=== PATIENT | female | born 1975 | race Caucasian/White ===

== ENCOUNTER 2016-07-22 18:54 | Inpatient (IN) | payer OTHER ==
[2016-07-22] MEDS ORDERED: IPRATROPIUM-ALBUTEROL 3 ML NEB INHALATION STA ×2 (19:15→19:54)
[2016-07-22] MEDS ORDERED: methylPREDNISolone SOD SUCCI 125 MG/2 ML VIAL IV STA (19:15)
--- NOTE | 2016-07-22 19:17 | ED ---
General Adult HPI - General Source: patient, RN notes reviewed Mode of arrival: wheelchair Limitations: no limitations <Sean Tirado - Last Filed: 07/22/16 19:16> <Ga Lindsey - Last Filed: 07/22/16 20:51> - General Chief complaint: Shortness of Breath Stated complaint: ALEX, COUGHING, POSS DX COPD Time Seen by Provider: 07/22/16 19:10 - History of Present Illness Initial comments: Patient 41-year-old female with significant past medical history for asthma, who presents emergency room today with a chief complaint of increased shortness of breath over the last 4 days. She does admit that she quit smoking 9 days ago. States over the last 4 days she's had increased cough congestion. States she's felt increased shortness of breath with walking into work today. She states she's had similar symptoms in the past with an exacerbation of her asthma. She states she did not take any breathing treatments at home. She does admit that approximately a year ago had similar symptoms and was admitted to the hospital. Patient denies any recent fever, chills, chest pain, back pain , abdominal pain, nausea or vomiting, numbness or tingling, dysuria or hematuria , constipation or diarrhea, headaches or visual changes, or any other complaints. (Sean Tirado) - Related Data Home Medications Medication Instructions Recorded Confirmed No Known Home Medications [No 07/22/16 07/22/16 Known Home Medications] Allergies Allergy/AdvReac Type Severity Reaction Status Date / Time No Known Allergies Allergy Verified 07/22/16 19:48 Review of Systems ROS Other: All systems not noted in ROS Statement are negative. <Sean Tirado - Last Filed: 07/22/16 19:16> ROS Other: All systems not noted in ROS Statement are negative. <Ga Lindsey - Last Filed: 07/22/16 20:51> ROS Statement: Those systems with pertinent positive or pertinent negative responses have been documented in the HPI. Past Medical History Past Medical History: Asthma, COPD Additional Past Medical History / Comment(s): migraines History of Any Multi-Drug Resistant Organisms: None Reported Past Surgical History: Tubal Ligation Past Psychological History: Anxiety Smoking Status: Former smoker Past Alcohol Use History: None Reported Past Drug Use History: None Reported <Sean Tirado - Last Filed: 07/22/16 19:16> General Exam Limitations: no limitations <Sean Tirado - Last Filed: 07/22/16 19:16> <Ga Lindsey - Last Filed: 07/22/16 20:51> - General Exam Comments Initial Comments: General: The patient is awake and alert, in no distress, and does not appear acutely ill. Eye: Pupils are equal, round and reactive to light, extra-ocular movements are intact. No nystagmus. There is normal conjunctiva bilaterally. No signs of icterus. Ears, nose, mouth and throat: There are moist mucous membranes and no oral lesions. Neck: The neck is supple, there is no tenderness or JVD. Cardiovascular: There is a regular rate and rhythm. No murmur, rub or gallop is appreciated. Respiratory: Decreased breath sounds bilaterally with forced expiratory wheeze. respirations are non-labored, breath sounds are equal. No stridor, rales, or rhonchi. Musculoskeletal: Normal ROM, no tenderness. Strength 5/5. Sensation intact. Pulses equal bilaterally 2+. Neurological: A&O x 3. CN II-XII intact, There are no obvious motor or sensory deficits. Coordination appears grossly intact. Speech is normal. Skin: Skin is warm and dry and no rashes or lesions are noted. Psychiatric: Cooperative, appropriate mood & affect, normal judgment. (Sean Tirado) Medical Decision Making <Sean Tirado - Last Filed: 07/22/16 19:16> - Lab Data Result diagrams: 07/22/16 19:45 07/22/16 19:45 <Ga Lindsey - Last Filed: 07/22/16 20:51> - Medical Decision Making Medical decision making; the patient's morbidly obese at 330 pounds. I reviewed the patient past history with her and performed a bedside physical examination. Wheezing bilaterally that the second updraft. Patient's heart sounds are distant but no murmur or rub was appreciated. Patient denies any known congenital heart disease. Denies ever having been told that she had an elevated hemoglobin or hematocrit. Complaining of shortness of breath for 3 or 4 days, doing updrafts at home without much improvement. Patient presents today with shortness of breath. No chest pain She was given an updraft with slight improvement. Upon arrival the patient's blood pressures 171/83 with a pulse ox 90% on room air. Labs showed elevated hemoglobin and hematocrit of 16 and 52 respectively. Liver enzymes mildly elevated. Chest x-ray was reviewed by radiologist and his findings are lung volumes are prominent. Lung appear clear. Pleural spaces are clear. Heart size is normal. There is enlargement of the right interlobar pulmonary artery measuring 2.4 cm. Impression; COPD and findings suggestive of pulmonary artery hypertension. As read by Dr. Bonner Case discussed with Dr. Mendenhall on-call hospitalist. We discussed pulmonary hypertension, cor pulmonale, polycythemia vera. An echocardiogram will be done while in hospital. Dr. Lindsey (Ga Lindsey) - Lab Data Lab Results 07/22/16 07/22/16 Range/Units 19:45 19:45 WBC 6.8 (3.8-10.6) k/uL RBC 5.52 H (3.80-5.40) m/uL Hgb 16.6 H (11.4-16.0) gm/dL Hct 52.7 H (34.0-46.0) % MCV 95.5 (80.0-100.0) fL MCH 30.0 (25.0-35.0) pg MCHC 31.4 (31.0-37.0) g/dL RDW 14.1 (11.5-15.5) % Plt Count 195 (150-450) k/uL Neutrophils % 64 % Lymphocytes % 23 % Monocytes % 7 % Eosinophils % 1 % Basophils % 1 % Neutrophils # 4.3 (1.3-7.7) k/uL Lymphocytes # 1.6 (1.0-4.8) k/uL Monocytes # 0.5 (0-1.0) k/uL Eosinophils # 0.1 (0-0.7) k/uL Basophils # 0.1 (0-0.2) k/uL Sodium 141 (137-145) mmol/L Potassium 4.1 (3.5-5.1) mmol/L Chloride 103 (98-107) mmol/L Carbon Dioxide 26 (22-30) mmol/L Anion Gap 12 mmol/L BUN 9 (7-17) mg/dL Creatinine 0.49 L (0.52-1.04) mg/dL Est GFR (MDRD) Af Amer >60 (>60 ml/min/1.73 sqM) Est GFR (MDRD) Non-Af >60 (>60 ml/min/1.73 sqM) Glucose 145 H (74-99) mg/dL Calcium 8.8 (8.4-10.2) mg/dL Total Bilirubin 0.6 (0.2-1.3) mg/dL AST 39 H (14-36) U/L ALT 55 H (9-52) U/L Alkaline Phosphatase 91 (38-126) U/L Total Protein 7.5 (6.3-8.2) g/dL Albumin 3.9 (3.5-5.0) g/dL Disposition <Sean Tirado - Last Filed: 07/22/16 19:16> <Ga Lindsey - Last Filed: 07/22/16 20:51> Clinical Impression: Pulmonary artery hypertension, Polycythemia vera Disposition: ADMITTED IP TO THIS HOSP Condition: Serious
[2016-07-22 19:57] LABS: Basophils # (A) 0.1 k/uL (0-0.2); Basophils % (A) 1 %; CH 30.3; CHCM 31.9; Eosinophils # (A) 0.1 k/uL (0-0.7); Eosinophils % (A) 1 %; HCT 52.7 % (34.0-46.0); HDW 2.49; HGB 16.6 gm/dL (11.4-16.0); Luc % (Auto) 3; Lymphocytes # (A) 1.6 k/uL (1.0-4.8); Lymphocytes % (A) 23 %; MCHC 31.4 g/dL (31.0-37.0); MCV 95.5 fL (80.0-100.0); Mean Platelet Volume 7.5; Monocytes # (A) 0.5 k/uL (0-1.0); Monocytes % (A) 7 %; Neutrophils # (A) 4.3 k/uL (1.3-7.7); Neutrophils % (A) 64 %; RBC 5.52 m/uL (3.80-5.40); RDW 14.1 % (11.5-15.5); WBC 6.8 k/uL (3.8-10.6)
[2016-07-22 20:07] LABS: ALT 55 U/L (9-52); AST 39 U/L (14-36); Alkaline Phosphatase 91 U/L (38-126); Anion Gap 12 mmol/L; Blood Urea Nitrogen 9 mg/dL (7-17); Calcium 8.8 mg/dL (8.4-10.2); Carbon Dioxide 26 mmol/L (22-30); Chloride 103 mmol/L (98-107); Glucose 145 mg/dL (74-99); Non-African American GFR(MDRD) >60 (>60 ml/min/1.73 sqM); Potassium 4.1 mmol/L (3.5-5.1); Sodium 141 mmol/L (137-145); Total Bilirubin 0.6 mg/dL (0.2-1.3); Total Protein 7.5 g/dL (6.3-8.2)
--- NOTE | 2016-07-22 20:11 | XR ---
EXAMINATION TYPE: XR chest 2V DATE OF EXAM: 07/22/2016 8:05 PM HISTORY: Cough and shortness of breath. REFERENCE: Previous study dated 07/28/2015. FINDINGS: Lung volumes are prominent. The lungs appear clear. Pleural spaces are clear. Heart size is normal. There is enlargement of the right interlobar pulmonary artery measuring 2.4 cm. IMPRESSION: 1. COPD. 2. FINDINGS SUGGESTIVE OF PULMONARY ARTERY HYPERTENSION.
[2016-07-22] MEDS ORDERED: TERBUTALINE 1 MG/ML VIAL SQ STA (20:32)
[2016-07-22] MEDS ORDERED: NALOXONE 0.4 MG/ML 1 ML VIAL IV PRN (20:52)
[2016-07-22] MEDS ORDERED: IPRATROPIUM-ALBUTEROL 3 ML NEB INHALATION PRN (21:02)
[2016-07-22 21:49] LABS: Glucose,Whole Blood 139 mg/dL (75-99)
[2016-07-22] MEDS: FAMOTIDINE 20 MG TAB PO SCH (22:26)
[2016-07-22] MEDS ORDERED: RX INFO: IV CONTRAST WAS GIVEN 1 EACH MISC MISCELLANE PRN (22:42)
[2016-07-22] MEDS: methylPREDNISolone SOD SUCCI 40 MG/ML 1 ML VIAL IV SCH (23:55)
[2016-07-22] MEDS: amLODIPine 10 MG TAB PO SCH (23:55)
[2016-07-22] MEDS: BENZONATATE 100 MG CAP PO PRN (23:55)
[2016-07-22] MEDS: IBUPROFEN 400 MG TAB PO PRN (23:55)
[2016-07-22] MEDS: SODIUM CHLORIDE 0.9% 1,000 ML IV SCH (23:56)
[2016-07-23] MEDS: IPRATROPIUM-ALBUTEROL 3 ML NEB INHALATION PRN (00:29)
[2016-07-23 04:10] LABS: Basophils % (A) 1 %; CH 30.2; CHCM 31.5; Eosinophils % (A) 0 %; HCT 52.1 % (34.0-46.0); HDW 2.45; Luc # (Auto) 0.05; Luc % (Auto) 1; Lymphocytes # (A) 0.5 k/uL (1.0-4.8); Lymphocytes % (A) 11 %; MCH 29.7 pg (25.0-35.0); MCHC 30.8 g/dL (31.0-37.0); MCV 96.4 fL (80.0-100.0); Mean Platelet Volume 7.9; Monocytes # (A) 0.1 k/uL (0-1.0); Monocytes % (A) 1 %; Neutrophils # (A) 4.2 k/uL (1.3-7.7); Neutrophils % (A) 86 %; RDW 14.2 % (11.5-15.5); WBC 4.9 k/uL (3.8-10.6); WBC (Perox) 4.79
[2016-07-23 04:24] LABS: ALT 47 U/L (9-52); AST 37 U/L (14-36); Alkaline Phosphatase 95 U/L (38-126); Anion Gap 13 mmol/L; Blood Urea Nitrogen 8 mg/dL (7-17); Calcium 9.5 mg/dL (8.4-10.2); Carbon Dioxide 25 mmol/L (22-30); Chloride 101 mmol/L (98-107); Glucose 200 mg/dL (74-99); Non-African American GFR(MDRD) >60 (>60 ml/min/1.73 sqM); Sodium 139 mmol/L (137-145); Total Bilirubin 0.5 mg/dL (0.2-1.3); Total Protein 7.8 g/dL (6.3-8.2)
[2016-07-23 04:39] LABS: Potassium 4.8 mmol/L (3.5-5.1)
[2016-07-23] MEDS: BENZONATATE 100 MG CAP PO PRN ×3 (06:28→23:16)
[2016-07-23] MEDS: BUDESONIDE 1 MG/2 ML NEBU INHALATION SCH ×2 (07:15→19:12)
[2016-07-23] MEDS: IPRATROPIUM-ALBUTEROL 3 ML NEB INHALATION SCH ×4 (07:15→19:12)
--- NOTE | 2016-07-23 07:23 | XR ---
EXAMINATION TYPE: XR chest 1V portable DATE OF EXAM: 07/23/2016 6:22 AM COMPARISON: 07/22/2016 HISTORY: Chest pain TECHNIQUE: Single frontal view of the chest is obtained. Examination is limited by the poorly penetra carlitos technique. FINDINGS: Basilar infiltrates are difficult to exclude. Cardiomediastinal silhouette is stable. Bony thorax is intact. IMPRESSION: 1. Limited examination.
[2016-07-23] MEDS: FAMOTIDINE 20 MG TAB PO SCH ×2 (08:52→21:28)
[2016-07-23] MEDS: methylPREDNISolone SOD SUCCI 40 MG/ML 1 ML VIAL IV SCH ×3 (08:52→23:16)
[2016-07-23] MEDS: IBUPROFEN 400 MG TAB PO PRN ×2 (10:07→17:23)
--- NOTE | 2016-07-23 10:35 | ECHOF ---
Referral Reason:Pulmonary hypertension MEASUREMENTS -------- HEIGHT: 175.3 cm WEIGHT: 149.7 kg BP: 145/66 IVSd: 1.4 cm (0.6 - 1.1) LVIDd: 5.6 cm (3.9 - 5.3) LVPWd: 1.2 cm (0.6 - 1.1) IVSs: 2.2 cm LVIDs: 3.5 cm LVPWs: 2.0 cm Ao Diam: 3.2 cm (2.0 - 3.7) AV Cusp: 2.3 cm (1.5 - 2.6) LA Diam: 3.3 cm (2.7 - 3.8) MV EXCURSION: 17.570 mm (> 18.000) MV EF SLOPE: 132 mm/s (70 - 150) EPSS: 0.4 cm MV E José: 1.16 m/s MV DecT: 215 ms MV A José: 1.00 m/s MV E/A Ratio: 1.16 RAP: 5.00 mmHg RVSP: 10.33 mmHg FINDINGS -------- Sinus rhythm. This was a technically adequate study. There is mild concentric left ventricular hypertrophy. Overall left ventricular systolic function is normal with, an EF between 55 - 60 %. The right ventricle is normal in size and function. The left atrium is normal in size. The right atrium is normal in size. Aortic valve is trileaflet and is mildly thickened. The mitral valve leaflets are mildly thickened. Mild mitral regurgitation is present. Mild tricuspid regurgitation present. The right ventricular systolic pressure, as measured by Doppler, is 10.33mmHg. Pulmonic valve appears structurally normal. The aortic root size is normal. The pericardium is normal. CONCLUSIONS -------- 1. Sinus rhythm. 2. Mild mitral regurgitation is present. 3. Mild tricuspid regurgitation present. 4. The right ventricular systolic pressure, as measured by Doppler, is 10.33mmHg. 5. Pulmonic valve appears structurally normal. 6. The aortic root size is normal. 7. The pericardium is normal. 8. This was a technically adequate study. 9. There is mild concentric left ventricular hypertrophy. 10. Overall left ventricular systolic function is normal with, an EF between 55 - 60 %. 11. The right ventricle is normal in size and function. 12. The left atrium is normal in size. 13. The right atrium is normal in size. 14. Aortic valve is trileaflet and is mildly thickened. 15. The mitral valve leaflets are mildly thickened. CHROME PLATER HELPER: Vero Troncoso RDCS
--- NOTE | 2016-07-23 10:42 | P.CNPUL ---
History of Present Illness Consult date: 07/23/16 Requesting physician: Vinnie Mendenhall Reason for consult: COPD Chief complaint: Shortness of breath History of present illness: This is a very pleasant 41-year-old female patient who has no primary care physician. She has a history of chronic bronchial asthma, chronic obstructive pulmonary disease, chronic and ongoing nicotine addiction and migraines. She's been smoking approximately 25 years at 1 pack per day. She's currently not on any home medications. No inhalers. He was seen here approximately 1 year ago with similar situation of shortness of breath but did not follow up with a primary care physician or pig farmer. She presented here yesterday with complaints of increasing shortness of breath, cough and congestion. Her chest x -ray reveals questionable basilar infiltrates, suspect pulmonary hypertension. Her d-dimer was negative. She is hypoxic requiring 6 L of nasal cannula to maintain O2 saturations in the 90s. She is seen today in consultation. She is awake and alert in no acute distress. She is dyspneic with minimal exertion. She is afebrile. No leukocytosis. She does have a clinical picture of obesity/ hypoventilation syndrome/obstructive sleep apnea. Review of Systems 14 point review of system was conducted. All negative other than as mentioned in HPI. Past Medical History Past Medical History: Asthma, COPD Additional Past Medical History / Comment(s): migraines History of Any Multi-Drug Resistant Organisms: None Reported Past Surgical History: Tubal Ligation Past Psychological History: Anxiety Smoking Status: Former smoker Past Alcohol Use History: None Reported Past Drug Use History: None Reported Medications and Allergies Home Medications Medication Instructions Recorded Confirmed Type No Known Home Medications [No 07/22/16 07/22/16 History Known Home Medications] Allergies Allergy/AdvReac Type Severity Reaction Status Date / Time No Known Allergies Allergy Verified 07/22/16 19:48 Physical Exam Vitals: Vital Signs Temp Pulse Resp BP Pulse Ox 07/23/16 08:00 98.4 F 81 20 138/48 90 L 07/23/16 07:41 95 07/23/16 07:33 90 07/23/16 07:17 82 07/23/16 04:00 94 20 145/66 93 L 07/23/16 03:39 22 07/23/16 00:33 88 07/23/16 00:22 86 07/23/16 00:00 98.6 F 81 22 146/62 92 L Intake and Output 07/22/16 07/23/16 07/23/16 22:59 06:59 14:59 Intake Total 1230 Balance 1230 Intake: IV 430 Sodium Chloride 0.9% 1, 430 000 ml @ 70 mls/hr IV . [id number] [facility] Rx#:[id number] Blood Product 800 Other: Voiding Method Toilet Toilet # Voids 2 Weight 97.2 kg 149.685 kg GENERAL EXAM: Morbidly obese. Alert, comfortable in no apparent distress. HEAD: Normocephalic. EYES: Normal reaction of pupils, equal size. NOSE: Clear with pink turbinates. THROAT: There is crowding of posterior pharynx. No erythema or exudates. NECK: Short. No masses, no JVD. CHEST: No chest wall deformity. LUNGS: Equal air entry with bilateral end expiratory wheeze. Diminished. CVS: S1 and S2 normal with no audible murmurs, regular rhythm. ABDOMEN: Obese, soft. Normal bowel sounds, no guarding or rigidity. SPINE: No scoliosis or deformity SKIN: No rashes CENTRAL NERVOUS SYSTEM: No focal deficits, tone is normal in all 4 extremities. Extremities: There is trace peripheral edema. No clubbing, no cyanosis. Peripheral pulses are intact. Results - Laboratory Findings CBC and BMP: 07/23/16 04:00 07/23/16 04:00 PT/INR, D-dimer D-Dimer 0.53 mg/L FEU (<0.60) 07/22/16 21:45 Abnormal lab findings: Abnormal Labs 07/22/16 07/23/16 07/23/16 21:46 04:00 04:00 Hct 52.1 H MCHC 30.8 L Lymphocytes # 0.5 L Creatinine 0.50 L Glucose 200 H POC Glucose (mg/dL) 139 H AST 37 H - Diagnostic Findings Chest x-ray: image reviewed Assessment and Plan Plan: Impression: #1 Acute exacerbation of chronic mild persistent asthma as well as an acute exacerbation of suspected chronic obstructive pulmonary disease/emphysema. #2 Acute hypoxic respiratory failure secondary to above along with suspected component of obesity/hypoventilation syndrome/obstructive sleep apnea. #3 Chronic and ongoing nicotine addiction of 1 pack per day 25 years. #4 Morbid obesity. #5 History of migraines. Plan: The patient was seen and evaluated by Dr. Adkins. Her chest x-ray and labs were reviewed. Her d-dimer was negative. No CT angiogram needed. We'll treat her for her acute exacerbation with IV Solu-Medrol, bronchodilators and Pulmicort inhalations twice a day. She is educated regarding the importance of complete smoking cessation. A NicoDerm patch has been offered. She is also educated regarding the importance of follow-up with a primary care physician to address her other healthcare needs. She also is recommended to follow-up with us in the office to undergo full pulmonary function testing to evaluate the severity of her suspected COPD and make recommendations for daily maintenance medications. She would also benefit from a sleep study as she has clinical features along with history of snoring and daytime sleepiness for suspected sleep apnea. She is educated regarding the importance of weight loss as well. Will increase her activity as tolerated. We'll continue to follow and make further recommendations based on her clinical status.
[2016-07-23] MEDS: SODIUM CHLORIDE 0.9% 1,000 ML IV SCH (10:55)
[2016-07-23] MEDS: ENOXAPARIN 60 MG/0.6 ML SYRINGE SQ SCH (14:55)
[2016-07-23 17:32] LABS: Glucose,Whole Blood 123 mg/dL (75-99)
[2016-07-23] MEDS: INSULIN LISPRO (humaLOG) 300 UNIT/3 ML VIAL SQ SCH ×2 (17:36→21:28)
--- NOTE | 2016-07-23 19:18 | P.HPIM ---
History of Present Illness H&P Date: 07/23/16 Chief Complaint: rolan 41 yr old female with history of over 25 pack smoking history comes into the hospital with progressive worsening of dyspnea over the last days. pt denies any history of VTE, JACK. Pt was evaluated in the ed, a d -dimer was negative, no abnormalities was noted on an initial chest xray. Pt states she had progressive worsening of dyspnea, associated with cough, non productive in nature, and some chest pressure exacerbated with deep breathing. Pt was admitted and was noted to have hypoxia, during my examination pt was noted to be on 6 l of supplemental o2. Pt states that she quit smoking over 2 weeks ago. Denies recent travel history, no exposure to sick contact, or other inhalant irritants. Review of Systems All systems: negative (Noted in HPI) Past Medical History Past Medical History: Asthma, COPD Additional Past Medical History / Comment(s): migraines History of Any Multi-Drug Resistant Organisms: None Reported Past Surgical History: Tubal Ligation Past Psychological History: Anxiety Smoking Status: Former smoker Past Alcohol Use History: None Reported Past Drug Use History: None Reported Medications and Allergies Home Medications Medication Instructions Recorded Confirmed Type No Known Home Medications [No 07/22/16 07/22/16 History Known Home Medications] Allergies Allergy/AdvReac Type Severity Reaction Status Date / Time No Known Allergies Allergy Verified 07/22/16 19:48 Physical Exam Vitals: Vital Signs Temp Pulse Resp BP Pulse Ox 07/23/16 16:48 90 07/23/16 16:25 84 92 L 07/23/16 16:00 98.3 F 80 18 123/69 93 L 07/23/16 12:00 98.9 F 97 14 125/63 93 L 07/23/16 11:26 85 07/23/16 11:12 81 07/23/16 08:00 98.4 F 81 20 138/48 90 L 07/23/16 07:41 95 07/23/16 07:33 90 07/23/16 07:17 82 07/23/16 04:00 94 20 145/66 93 L 07/23/16 03:39 22 07/23/16 00:33 88 07/23/16 00:22 86 07/23/16 00:00 98.6 F 81 22 146/62 92 L Intake and Output 07/23/16 07/23/16 07/23/16 06:59 14:59 22:59 Intake Total 4230 669 5457 Balance 1727 922 2822 Intake: IV 430 420 Sodium Chloride 0.9% 1, 430 420 000 ml @ 70 mls/hr IV . [id number] [facility] Rx#:[id number] Oral 1000 Blood Product 800 Other: Voiding Method Toilet Toilet Toilet # Voids 2 1 2 Weight 149.685 kg Results CBC & Chem 7: 07/23/16 04:00 07/23/16 04:00 Labs: Abnormal Lab Results - Last 24 Hours (Table) 07/22/16 07/23/16 07/23/16 Range/Units 21:46 04:00 04:00 Hct 52.1 H (34.0-46.0) % MCHC 30.8 L (31.0-37.0) g/dL Lymphocytes # 0.5 L (1.0-4.8) k/uL Creatinine 0.50 L (0.52-1.04) mg/dL Glucose 200 H (74-99) mg/dL POC Glucose (mg/dL) 139 H (75-99) mg/dL AST 37 H (14-36) U/L 07/23/16 Range/Units 17:30 Hct (34.0-46.0) % MCHC (31.0-37.0) g/dL Lymphocytes # (1.0-4.8) k/uL Creatinine (0.52-1.04) mg/dL Glucose (74-99) mg/dL POC Glucose (mg/dL) 123 H (75-99) mg/dL AST (14-36) U/L Thrombosis Risk Factor Assmnt - Choose All That Apply Each Factor Represents 1 point: Obesity (BMI >25) Thrombosis Risk Factor Assessment Total Risk Factor Score: 1 Thrombosis Risk Factor Assessment Level: Low Risk
[2016-07-23] MEDS: amLODIPine 10 MG TAB PO SCH (21:27)
[2016-07-23 21:28] LABS: Glucose,Whole Blood 142 mg/dL (75-99)
[2016-07-23] MEDS: ACETAMINOPHEN TAB 325 MG TAB PO PRN (22:37)
[2016-07-23] MEDS: guaiFENesin 600 MG TABLET.ER PO PRN (23:16)
[2016-07-24] MEDS: IPRATROPIUM-ALBUTEROL 3 ML NEB INHALATION PRN (04:37)
[2016-07-24] MEDS: IPRATROPIUM-ALBUTEROL 3 ML NEB INHALATION SCH ×4 (07:49→20:11)
[2016-07-24] MEDS: BUDESONIDE 1 MG/2 ML NEBU INHALATION SCH ×2 (07:49→20:09)
[2016-07-24 08:19] LABS: Glucose,Whole Blood 125 mg/dL (75-99)
[2016-07-24] MEDS: INSULIN LISPRO (humaLOG) 300 UNIT/3 ML VIAL SQ SCH ×4 (08:28→21:27)
[2016-07-24] MEDS: FAMOTIDINE 20 MG TAB PO SCH ×2 (08:29→20:35)
[2016-07-24] MEDS: methylPREDNISolone SOD SUCCI 40 MG/ML 1 ML VIAL IV SCH ×3 (08:29→23:04)
[2016-07-24] MEDS: ENOXAPARIN 60 MG/0.6 ML SYRINGE SQ SCH (08:29)
--- NOTE | 2016-07-24 10:50 | P.PN ---
Subjective Progress note dated 07/24/2016 This is a 41-year-old female who we saw yesterday in the unit. She was admitted with a diagnosis of asthma/COPD exacerbation and probably secondary pulmonary hypertension based on the size of the pulmonary arteries on chest x- ray. She him also may suffer from sleep apnea syndrome and/or pickwickian syndrome. She has a history of morbid obesity chronic and ongoing nicotine addiction until recently and a history of migraines. The patient was started on standard therapy. Doing much better today. Likely discharge in next 24-48 hours. Might even be discharged home today. Yesterday I gave her the Pap talk about smoking cessation weight loss and finding a primary doctor to take care of her medical problems. She does seem to understand. Objective - Vital Signs Vital signs: Vital Signs Temp 97.7 F 07/24/16 08:00 Pulse 84 07/24/16 08:05 Resp 19 07/24/16 08:00 BP 143/72 07/24/16 08:00 Pulse Ox 93 L 07/24/16 08:00 Intake & Output 07/23/16 07/24/16 07/24/16 18:59 06:59 18:59 Intake Total 1420 680 Balance 1420 680 Weight 197.766 kg Intake: IV 420 Sodium Chloride 0.9% 1, 420 000 ml @ 70 mls/hr IV . [id number] [facility] Rx#:[id number] Oral 1000 680 Other: Voiding Method Toilet Toilet # Voids 2 1 - Exam No acute distress, oriented 3. HEENT examination is grossly unremarkable. Mucous membranes are moist. No oral lesions. Neck is supple. Full range of motion. Cardiovascular examination reveals regular rhythm rate. Lungs reveal few scattered residual rhonchi and wheezes. Breath sounds have improved. Slight prolongation. The rest of the examination is unchanged and is normal. - Labs CBC & Chem 7: 07/23/16 04:00 07/23/16 04:00 Labs: Abnormal Lab Results - Last 24 Hours (Table) 07/23/16 07/23/16 07/24/16 Range/Units 17:30 21:14 08:16 POC Glucose (mg/dL) 123 H 142 H 125 H (75-99) mg/dL Assessment and Plan (1) COPD exacerbation Status: Acute (2) Pulmonary artery hypertension Status: Acute (3) Acute bronchitis Status: Acute (4) Asthma with exacerbation Status: Acute Plan: Plan The patient's on appropriate medications. We'll continue to follow. Discharge soon. She understands the importance of never smoking again losing weight and finding a primary care physician so that she can get good better care. His recommendations suggestions are forthcoming. Prognosis is guarded. Time with Patient: Less than 30
[2016-07-24 11:24] LABS: Hemoglobin A1C 5.9 % (4.2-6.1)
[2016-07-24] MEDS: ACETAMINOPHEN TAB 325 MG TAB PO PRN ×2 (11:29→17:51)
[2016-07-24] MEDS: IBUPROFEN 400 MG TAB PO PRN ×2 (11:30→17:51)
[2016-07-24] MEDS: guaiFENesin 600 MG TABLET.ER PO PRN ×2 (11:32→23:04)
[2016-07-24] MEDS: BENZONATATE 100 MG CAP PO PRN ×2 (11:32→20:45)
[2016-07-24 11:45] LABS: Glucose,Whole Blood 126 mg/dL (75-99)
--- NOTE | 2016-07-24 17:19 | P.PN ---
Subjective 41 yr old female with history of over 25 pack smoking history comes into the hospital with progressive worsening of dyspnea over the last days. pt denies any history of VTE, JACK. Pt was evaluated in the ed, a d -dimer was negative, no abnormalities was noted on an initial chest xray. Pt states she had progressive worsening of dyspnea, associated with cough, non productive in nature, and some chest pressure exacerbated with deep breathing. Pt was admitted and was noted to have hypoxia, during my examination pt was noted to be on 6 l of supplemental o2. Pt states that she quit smoking over 2 weeks ago. Denies recent travel history, no exposure to sick contact, or other inhalant irritants. 2016 Patient was started on steroids, breathing treatments. Patient was titrated down from 6 L 2 L supplement induction. States to be feeling slightly better however is not improved enough. He is having any fevers, chills, nausea, vomiting. Patient discusses that she would like to meet a dietitian. Objective - Vital Signs Vital signs: Vital Signs Temp 97.1 F L 07/24/16 15:01 Pulse 90 07/24/16 16:27 Resp 21 07/24/16 16:00 BP 147/72 07/24/16 15:01 Pulse Ox 93 L 07/24/16 15:01 Intake & Output 07/23/16 07/24/16 07/24/16 18:59 06:59 18:59 Intake Total 1420 680 Balance 1420 680 Weight 197.766 kg Intake: IV 420 Sodium Chloride 0.9% 1, 420 000 ml @ 70 mls/hr IV . [id number] [facility] Rx#:[id number] Oral 1000 680 Other: Voiding Method Toilet Toilet Toilet # Voids 2 1 - Exam Physical exam Gen. appearance oriented 3 in no distress Neck is supple no JVD Lungs silent chest posteriorly good air movement anteriorly than prior examination however trace X between wheezing is appreciated. Heart S1-S2 heard regular rate and rhythm no murmurs appreciated Abdomen is soft nontender no organomegaly bowel sounds are intact Neurologically cranial nerves II-12 grossly intact no focal motor or sensory deficits noted Skin no abnormalities appreciated - Labs CBC & Chem 7: 07/23/16 04:00 07/23/16 04:00 Labs: Abnormal Lab Results - Last 24 Hours (Table) 07/23/16 07/23/16 07/24/16 Range/Units 17:30 21:14 08:16 POC Glucose (mg/dL) 123 H 142 H 125 H (75-99) mg/dL 07/24/16 Range/Units 11:38 POC Glucose (mg/dL) 126 H (75-99) mg/dL Assessment and Plan Plan: 1. Acute hypoxic respiratory failure sec to an acute exacerbation of COPD due to tracheobronchitis. 2. Obesity 3. Clinical JACK> 4. Tobacco use, quit a week ago. Plan Continue breathing treatments and steroids. Patient is currently on 2 L supplement oxygen. Smoking cessation was discussed by the feed preparation operator and myself A dietitian consult will also be placed. Likely be discharged in the next 24- 48 hours depending on her clinical progress. DVT prophylaxis. Pepcid 20mg po bid WIll need outpatient PFTS.
[2016-07-24 17:29] LABS: Glucose,Whole Blood 139 mg/dL (75-99)
[2016-07-24] MEDS: amLODIPine 10 MG TAB PO SCH (20:35)
[2016-07-24 21:06] LABS: Glucose,Whole Blood 166 mg/dL (75-99)
[2016-07-25] MEDS: IPRATROPIUM-ALBUTEROL 3 ML NEB INHALATION PRN (00:24)
[2016-07-25] MEDS: BENZONATATE 100 MG CAP PO PRN ×2 (05:50→20:42)
[2016-07-25] MEDS: IPRATROPIUM-ALBUTEROL 3 ML NEB INHALATION SCH ×4 (07:38→19:28)
[2016-07-25] MEDS: BUDESONIDE 1 MG/2 ML NEBU INHALATION SCH ×2 (07:38→19:25)
[2016-07-25 07:44] LABS: Glucose,Whole Blood 131 mg/dL (75-99)
[2016-07-25] MEDS: FAMOTIDINE 20 MG TAB PO SCH ×2 (08:39→20:42)
[2016-07-25] MEDS: methylPREDNISolone SOD SUCCI 40 MG/ML 1 ML VIAL IV SCH ×3 (08:39→23:13)
[2016-07-25] MEDS: ENOXAPARIN 60 MG/0.6 ML SYRINGE SQ SCH (08:39)
[2016-07-25] MEDS: INSULIN LISPRO (humaLOG) 300 UNIT/3 ML VIAL SQ SCH ×4 (08:39→21:04)
--- NOTE | 2016-07-25 11:58 | P.PN ---
Subjective Progress note dated 07/24/2016 This is a 41-year-old female who we saw yesterday in the unit. She was admitted with a diagnosis of asthma/COPD exacerbation and probably secondary pulmonary hypertension based on the size of the pulmonary arteries on chest x- ray. She him also may suffer from sleep apnea syndrome and/or pickwickian syndrome. She has a history of morbid obesity chronic and ongoing nicotine addiction until recently and a history of migraines. The patient was started on standard therapy. Doing much better today. Likely discharge in next 24-48 hours. Might even be discharged home today. Yesterday I gave her the Pap talk about smoking cessation weight loss and finding a primary doctor to take care of her medical problems. She does seem to understand. Neck Progress note dated 07/25/2016 The patient is doing better. She is a 41-year-old female that was admitted with a diagnosis of asthma/COPD exacerbation and probable secondary pulmonary hypertension. Her biggest issue right now is cough. She's not bringing much up. She may also suffer from sleep apnea syndrome and/or pickwickian syndrome. She does have morbid obesity. Up until hospitalization she was smoking cigarettes. Anyway doing much better from my perspective could be discharged home. If she is discharged home she be just discharged on Singulair 10 mg at bedtime. She should be also discharged on a combined inhaled corticosteroid and long-acting beta agonist medication. In addition a short acting beta agonist such as Proventil Pro Air or Ventolin. She should also go home on a short course of oral antibiotics and a prednisone burst and taper beginning with 40 mg for 4 days 30 mg 4 days 20 4 days 10 mg 4 days and stop. Objective - Vital Signs Vital signs: Vital Signs Temp 96.2 F L 07/25/16 07:49 Pulse 72 07/25/16 11:41 Resp 19 07/25/16 07:49 BP 127/60 07/25/16 07:49 Pulse Ox 84 L 07/25/16 08:00 Intake & Output 07/24/16 07/25/16 07/25/16 18:59 06:59 18:59 Intake Total 340 Balance 340 Weight 195 kg Intake: Oral 340 Other: Voiding Method Toilet Toilet # Voids 1 2 - Exam No acute distress, oriented 3. HEENT examination is grossly unremarkable. Mucous membranes are moist. No oral lesions. Neck is supple. Full range of motion. Cardiovascular examination reveals regular rhythm rate. Lungs reveal few scattered residual rhonchi and wheezes. Breath sounds have improved. Slight prolongation. Abdomen is obese. Bowel sounds are heard. Extremities reveal some mild edema. - Labs CBC & Chem 7: 07/23/16 04:00 07/23/16 04:00 Labs: Abnormal Lab Results - Last 24 Hours (Table) 07/24/16 07/24/16 07/25/16 Range/Units 17:27 20:59 07:37 POC Glucose (mg/dL) 139 H 166 H 131 H (75-99) mg/dL Assessment and Plan (1) COPD exacerbation Status: Acute (2) Pulmonary artery hypertension Status: Acute (3) Acute bronchitis Status: Acute (4) Asthma with exacerbation Status: Acute Plan: Plan The patient's on appropriate medications. We'll continue to follow. Discharge soon. She understands the importance of never smoking again losing weight and finding a primary care physician so that she can get good better care. His recommendations suggestions are forthcoming. Prognosis is guarded. Plan dated 07/17/2016 As mentioned above. The patient could be discharged. I'll leave that up to the primary. The patient should be discharged on the medications mentioned above. She needs to make sure that she never smokes again. She needs to find himself a primary physician. She will need further evaluation by pulmonary if chemist pharmaceutical down the road. Her maintenance medication should include a rescue inhaler to be used 2 puffs when necessary also Singulair 10 g at bedtime and a combination long-acting beta agonist/inhaled corticosteroid to be used at appropriate doses. This recommendation suggestions are forthcoming. Next 1 lasting, for her cough, she should be she could be discharged home on either promethazine with codeine cough syrup or Tussionex cough syrup. Time with Patient: Less than 30
[2016-07-25 12:14] LABS: Glucose,Whole Blood 148 mg/dL (75-99)
[2016-07-25] MEDS: IBUPROFEN 400 MG TAB PO PRN ×2 (14:39→23:14)
[2016-07-25] MEDS: PROMETHAZ-COD 6.25-10 MG/5 ML 5 ML CUP PO PRN ×2 (14:40→23:14)
[2016-07-25 17:17] LABS: Glucose,Whole Blood 92 mg/dL (75-99)
[2016-07-25 17:23] VITALS: BMI 63.4
[2016-07-25] MEDS: amLODIPine 10 MG TAB PO SCH (20:41)
[2016-07-25] MEDS: guaiFENesin 600 MG TABLET.ER PO PRN (20:42)
[2016-07-25 21:04] LABS: Glucose,Whole Blood 142 mg/dL (75-99)
[2016-07-26] MEDS: IPRATROPIUM-ALBUTEROL 3 ML NEB INHALATION PRN (03:52)
[2016-07-26 07:41] LABS: Glucose,Whole Blood 103 mg/dL (75-99)
[2016-07-26] MEDS: methylPREDNISolone SOD SUCCI 40 MG/ML 1 ML VIAL IV SCH (07:59)
[2016-07-26] MEDS: ENOXAPARIN 60 MG/0.6 ML SYRINGE SQ SCH (07:59)
[2016-07-26] MEDS: ACETAMINOPHEN TAB 325 MG TAB PO PRN (07:59)
[2016-07-26] MEDS: FAMOTIDINE 20 MG TAB PO SCH (07:59)
[2016-07-26] MEDS: IBUPROFEN 400 MG TAB PO PRN (07:59)
[2016-07-26] MEDS: INSULIN LISPRO (humaLOG) 300 UNIT/3 ML VIAL SQ SCH ×2 (08:00→12:28)
[2016-07-26 08:07] VITALS: RESP 21
--- NOTE | 2016-07-26 08:17 | PN ---
DATE OF SERVICE: 07/25/2016 This 41-year-old woman was admitted with COPD acute exacerbation and respiratory failure, is still having significant shortness of breath. Expiratory wheezing also present. No chest pain, no palpitations. No fever. On exam, alert and oriented x3. Pulse 69, blood pressure 167/91, respirations 20, temperature 97.3, pulse ox 94% on 2-L. HEENT: Conjunctivae normal. NECK: No jugular venous distention. CARDIOVASCULAR: S1 and S2, muffled. RESPIRATORY: Breath sounds diminished at the bases. Bilateral scattered rhonchi and expiratory wheezing also. A few crackles also. ABDOMEN: Soft, nontender. LEGS: No edema, no swelling. NERVOUS SYSTEM: No focal deficits. LABS: Accu-Cheks 164, 131, 92. CBC noted. ASSESSMENT: 1. Chronic obstructive pulmonary disease, acute exacerbation, with acute hypoxic respiratory failure with acute purulent tracheobronchitis. 2. Obesity. 3. Obstructive sleep apnea possibly. 4. History of nicotine dependence. 5. Increased random blood sugar. 6. Increased AST, ALT, etiology unknown. 7. History of asthma, chronic obstructive pulmonary disease. 8. History of migraines. 9. History of anxiety, not otherwise specified. 10. Remote history of nicotine dependence. 11. Obesity with body mass index of 63.5. 12. FULL CODE. RECOMMENDATIONS AND DISCUSSION: In this 41-year-old woman who presented with multiple complex medical issues, will monitor the patient closely. Continue the current medications, continue symptomatic treatment. Continue IV steroids. Closely follow with Dr. Adkins. Guarded prognosis because of multiple complex medical issues. Further recommendations to follow.
[2016-07-26] MEDS: BUDESONIDE 1 MG/2 ML NEBU INHALATION SCH (09:03)
[2016-07-26] MEDS: IPRATROPIUM-ALBUTEROL 3 ML NEB INHALATION SCH ×3 (09:03→17:21)
[2016-07-26 10:56] VITALS: PULSE 76
--- NOTE | 2016-07-26 10:58 | P.PN ---
Subjective Progress note dated 07/24/2016 This is a 41-year-old female who we saw yesterday in the unit. She was admitted with a diagnosis of asthma/COPD exacerbation and probably secondary pulmonary hypertension based on the size of the pulmonary arteries on chest x- ray. She him also may suffer from sleep apnea syndrome and/or pickwickian syndrome. She has a history of morbid obesity chronic and ongoing nicotine addiction until recently and a history of migraines. The patient was started on standard therapy. Doing much better today. Likely discharge in next 24-48 hours. Might even be discharged home today. Yesterday I gave her the Pap talk about smoking cessation weight loss and finding a primary doctor to take care of her medical problems. She does seem to understand. Neck Progress note dated 07/25/2016 The patient is doing better. She is a 41-year-old female that was admitted with a diagnosis of asthma/COPD exacerbation and probable secondary pulmonary hypertension. Her biggest issue right now is cough. She's not bringing much up. She may also suffer from sleep apnea syndrome and/or pickwickian syndrome. She does have morbid obesity. Up until hospitalization she was smoking cigarettes. Anyway doing much better from my perspective could be discharged home. If she is discharged home she be just discharged on Singulair 10 mg at bedtime. She should be also discharged on a combined inhaled corticosteroid and long-acting beta agonist medication. In addition a short acting beta agonist such as Proventil Pro Air or Ventolin. She should also go home on a short course of oral antibiotics and a prednisone burst and taper beginning with 40 mg for 4 days 30 mg 4 days 20 4 days 10 mg 4 days and stop. Progress note dated 07/26/2016 This is a 41-year-old female admitted with diagnosis of COPD/asthma exacerbation and secondary pulmonary hypertension. The patient is doing much better. Breathing is much improved. She could've been discharged home yesterday in my opinion. She should be discharged home today. I've asked her about getting a primary care physician. She also needs to stop smoking once and for all. She does need to take better care of herself which includes eating better and losing weight. Objective - Vital Signs Vital signs: Vital Signs Temp 96.6 F L 07/26/16 07:00 Pulse 80 07/26/16 09:23 Resp 21 07/26/16 08:00 BP 135/64 07/26/16 07:00 Pulse Ox 93 L 07/26/16 07:00 Intake & Output 07/25/16 07/26/16 07/26/16 18:59 06:59 18:59 Intake Total 300 Balance 300 Weight 195 kg 196 kg Intake: Oral 300 Other: Voiding Method Toilet Toilet # Voids 3 1 - Exam No acute distress, oriented 3. HEENT examination is grossly unremarkable. Mucous membranes are moist. No oral lesions. Neck is supple. Full range of motion. Cardiovascular examination reveals regular rhythm rate. Lungs reveal few scattered residual rhonchi and wheezes. Breath sounds have improved. Slight prolongation. Abdomen is obese. Bowel sounds are heard. Extremities reveal some mild edema. - Labs CBC & Chem 7: 07/23/16 04:00 07/23/16 04:00 Labs: Abnormal Lab Results - Last 24 Hours (Table) 07/25/16 07/25/16 07/26/16 Range/Units 12:05 20:57 07:38 POC Glucose (mg/dL) 148 H 142 H 103 H (75-99) mg/dL Assessment and Plan (1) COPD exacerbation Status: Acute (2) Pulmonary artery hypertension Status: Acute (3) Acute bronchitis Status: Acute (4) Asthma with exacerbation Status: Acute Plan: Plan The patient's on appropriate medications. We'll continue to follow. Discharge soon. She understands the importance of never smoking again losing weight and finding a primary care physician so that she can get good better care. His recommendations suggestions are forthcoming. Prognosis is guarded. Plan dated 07/17/2016 As mentioned above. The patient could be discharged. I'll leave that up to the primary. The patient should be discharged on the medications mentioned above. She needs to make sure that she never smokes again. She needs to find himself a primary physician. She will need further evaluation by pulmonary if telegraph repeater technician down the road. Her maintenance medication should include a rescue inhaler to be used 2 puffs when necessary also Singulair 10 g at bedtime and a combination long-acting beta agonist/inhaled corticosteroid to be used at appropriate doses. This recommendation suggestions are forthcoming. Next 1 lasting, for her cough, she should be she could be discharged home on either promethazine with codeine cough syrup or Tussionex cough syrup. Plan dated down 07/26/2016 The patient should be discharged home. Patient can be discharged home on a prednisone taper beginning with 40 mg for 4 days 30 mm for 4 days 20 for 4 days 10 monos of 4 days and stop. she should also be discharged on singulair 10 g at bedtime and a combined inhaler which has both a long-acting beta agonist and inhaled corticosteroid. she should also be discharged home on a short acting beta agonist inhaler. she needs follow-up with the primary physician she needs to stop smoking once and for all. Time with Patient: Less than 30
[2016-07-26 12:01] LABS: Glucose,Whole Blood 102 mg/dL (75-99)
[2016-07-26] MEDS: BENZONATATE 100 MG CAP PO PRN (12:32)
[2016-07-26] MEDS: guaiFENesin 600 MG TABLET.ER PO PRN (12:32)
[2016-07-26 15:05] VITALS: BP 165/90; TEMP 97.8
[2016-07-26] MEDS ORDERED: SYMBICORT 160-4.5 MCG INHALER INHALATION SCH (20:00)
[2016-07-26] MEDS ORDERED: MONTELUKAST 10 MG TAB PO SCH (21:00)
[2016-07-27] MEDS ORDERED: predniSONE 20 MG TAB PO SCH (09:00)
--- NOTE | 2016-07-27 14:11 | DS ---
DATE OF ADMISSION: 07/22/2016 DATE OF DISCHARGE: 07/26/2016 FINAL DIAGNOSES: 1. Congestive heart failure acute exacerbation, with acute hypoxic respiratory failure with acute purulent tracheobronchitis. 2. Obesity. 3. Obstructive sleep apnea, possibly. 4. History of nicotine dependence. 5. Increased random blood sugar. 6. Increased AST, ALT etiology unknown, possibly hepatitis. 7. History of asthma, chronic obstructive pulmonary disease. 8. History of migraines not otherwise specified. 9. History of nicotine dependence. 10. Obesity, with body mass index 63.5. 11. FULL CODE. DISCHARGE DISPOSITION: The patient will be discharged in stable condition with guarded prognosis. Dr. Adkins cleared the patient for discharge. HISTORY OF PRESENT ILLNESS: This 41 -year-old woman with past medical history of multiple medical problems admitted with CHF acute exacerbation as well as acute purulent tracheobronchitis, treated symptomatically. the patient improved significantly. On exam, vitals are stable. CARDIOVASCULAR SYSTEM: S1, S2 muffled. RESPIRATORY: A few scattered rhonchi and crackles. Abdomen soft. Nontender. Central nervous system: No focal deficits. DISCHARGE ADVICE AND DISCHARGE MEDICATIONS. 1. Discharge diet is cardiac. 2. Activity limited until follow up. 3. Follow-up with Dr. Sinclair 2 to 3 days. 4. Follow up with Dr. Rene and Dr. Adkins as advised. 5. Benzoate. 6. Tessalon Perles 100 mg p.o. t.i.d. 7. Symbicort 160/4.5 mg 2 puffs b.i.d. 8. Albuterol Atrovent updrafts q.i.d. and p.r.n. 9. Singular 10 mg q.h.s. 10. Promethazine codeine 5 mL q.4 p.r.n. 11. Bactrim DS one p.o. b.i.d. for 5 days. 12. Norvasc 10 mg p.o. q.h.s. 13. Mucinex 600 mg daily. 14. Prednisone taper 40 mg daily for 3 days, 30 for 3 days; 20 for 3 days, 10 for 3 days and stop. MTDD
--- NOTE | 2016-07-29 10:35 | CDI ---
In responding to this query, please exercise your independent professional judgment. The [facility] Coding Staff and Clinical Documentation Specialists appreciate your assistance in clarifying documentation, maintaining compliance with coding guidelines, accurately documenting patients condition and capturing severity of illness. The fact that a question is asked does not imply that any particular answer is desired or expected. Communication forms are a method of clarifying documentation and are not made part of the Legal Health Record. Thank you in advance for your clarification. Last Revision, April 2015 Selina Jj [address] [facility] [address] Documentation Clarification Form Date: 07/29/2016 10:23:00 AM From: Jessie Brooke Phone: Admit Date: 07/22/2016 8:55:00 PM Patient Name: Nirmala Walton Visit Number: [id number] Discharge Date: 07/29/16 Dr. Letty Pike Conflicting documentation has been found in the medical record. The H&P and progress notes document that the patient has acute exaberation of COPD with acute purulent tracheobronchitis. The discharge summary documents acute exacerbation of CHF. History/Risk Factors: Obesity w BMI of 63.5, obstructive sleep apnea, nicotine dependence Treatment: IV Solu-Medrol, nebulizers, Symbicort, Pulmicort, Brethine In your opinion what is the most clinically appropriate diagnosis for this patient? Acute exacberation of COPD with acute lower respiratory infection Acute exacerbation of CHF OTHER explanation of clinical findings Unable to determine (no explanation for clinical findings) Please document in your progress notes and discharge summary in order to capture severity of illness and risk of mortality. Include clinical findings that support your diagnosis. FYI: Press F11 to launch patient chart. DONNY Scruggs, CCS, AHIMA Certified I-10 Manager Ambulatory/Title Investigator Manager Ambulatory II it should be COPD MTDD
--- NOTE | 2016-07-30 08:29 | DS ---
DATE OF ADMISSION: 07/22/2016 DATE OF DISCHARGE: 07/26/2016 ADDENDUM: Please note final diagnosis(es) should be: FINAL DIAGNOSIS(ES): 1. Chronic obstructive pulmonary disease, acute exacerbation. 2. No evidence of congestive heart failure acute exacerbation
== END 2016-07-26 17:25 | disposition home health service (06) | DRG 190 ==
LOC: EC 18:54 → 6ICU 20:55 → 4MS4W 07-23 22:04
PROVIDERS: ADMIT Internal Medicine; ATTEND Internal Medicine
DX: J44.0 Chronic obstructive pulmonary disease with (acute) lower respiratory infection (principal); J96.01 Acute respiratory failure with hypoxia; I27.2 Other secondary pulmonary hypertension; E66.2 Morbid (severe) obesity with alveolar hypoventilation; J45.31 Mild persistent asthma with (acute) exacerbation; Z68.44 Body mass index [BMI] 60.0-69.9, adult; J44.1 Chronic obstructive pulmonary disease with (acute) exacerbation; J20.9 Acute bronchitis, unspecified; F17.210 Nicotine dependence, cigarettes, uncomplicated; G47.33 Obstructive sleep apnea (adult) (pediatric); G43.909 Migraine, unspecified, not intractable, without status migrainosus; Z71.3 Dietary counseling and surveillance; D45 Polycythemia vera; F41.9 Anxiety disorder, unspecified
CPT/HCPCS: 36415; 71010; 71020; 80053; 83036; 83735; 83880; 85025; 85379; 93306; 94640; 94660; 94760; 96372; 96374; 99285

== ENCOUNTER 2016-09-27 11:59 | Emergency (ER) | payer OTHER ==
[2016-09-27 12:15] VITALS: BP 175/75; PULSE 87; RESP 17; TEMP 98.5
--- NOTE | 2016-09-27 12:35 | ED ---
General Adult HPI - General Chief complaint: ENT Stated complaint: sore throat Time Seen by Provider: 09/27/16 12:23 Source: patient, RN notes reviewed Mode of arrival: ambulatory Limitations: no limitations - History of Present Illness Initial comments: This is a 41-year-old female who presents with sore throat 2 days. Patient denies any fevers or chills but admits to congestion and a mild productive cough as well. Patient states her ears have been hurting as well. Patient states she's had multiple sick contacts with bronchitis symptoms. Patient states she did not get a flu shot this year. Patient denies any shortness of breath. Patient states she does have a history of asthma but has not been experiencing any shortness of breath recently. Patient denies any chance of being . Patient denies any recent chest pain, abdominal pain, nausea/ vomiting/diarrhea, back pain, numbness, tingling, hematuria, headache, or visual changes, or any other complaints. - Related Data Previous Rx's Medication Instructions Recorded Benzonatate [Tessalon Perles] 100 mg PO TID PRN #0 cap 07/26/16 Budesonide-Formot 160-4.5 Mcg 2 puff INHALATION RT-BID #1 puff 07/26/16 [Symbicort 160-4.5 Mcg Inhaler] Ipratropium-Albuterol Nebulize 3 ml INHALATION RT-QID #120 07/26/16 [Duoneb 0.5 mg-3 mg/3 ml Soln] ampul.neb Montelukast [Singulair] 10 mg PO HS #30 tab 07/26/16 Promethaz-Cod 6.25-10 mg/5 ml 5 ml PO Q4H PRN #60 ml 07/26/16 [Phenergan with Codeine] Sulfamethox-Tmp 800-160Mg [Bactrim 1 tab PO Q12HR #10 tab 07/26/16 DS 800-160 mg] amLODIPine [Norvasc] 10 mg PO HS #30 tab 07/26/16 guaiFENesin [Mucinex] 600 mg PO Q12HR PRN #60 tablet.er 07/26/16 predniSONE 10 mg PO DIRECTED #30 tab 07/26/16 Albuterol Inhaler [Ventolin Hfa 1 - 2 puff INHALATION Q6HR #1 09/27/16 Inhaler] inhaler predniSONE 20 mg PO DAILY 3 Days 09/27/16 Allergies Allergy/AdvReac Type Severity Reaction Status Date / Time No Known Allergies Allergy Verified 07/22/16 19:48 Review of Systems ROS Statement: Those systems with pertinent positive or pertinent negative responses have been documented in the HPI. ROS Other: All systems not noted in ROS Statement are negative. Past Medical History Past Medical History: Asthma, COPD Additional Past Medical History / Comment(s): migraines History of Any Multi-Drug Resistant Organisms: None Reported Past Surgical History: Tubal Ligation Past Psychological History: Anxiety Smoking Status: Former smoker Past Alcohol Use History: None Reported Past Drug Use History: None Reported General Exam - General Exam Comments Initial Comments: General: The patient is awake and alert, in no distress, and does not appear acutely ill. Eye: Pupils are equal, round and reactive to light, extra-ocular movements are intact. No nystagmus. There is normal conjunctiva bilaterally. No signs of icterus. Ears: TMs pink and pearly with intact cone of light bilaterally. Mild fluid noted behind bilateral tympanic membranes. Normal external ear canals Nose: Nasal turbinates are erythematous and edematous. Mouth and throat: Posterior pharynx is erythematous with 2+ tonsils and exudates. There are moist mucous membranes and no oral lesions. Neck: Anterior cervical chain lymphadenopathy present and tender. The neck is supple, there is no tenderness or JVD. Cardiovascular: There is a regular rate and rhythm. No murmur, rub or gallop is appreciated. Respiratory: Lungs are clear to auscultation, respirations are non-labored, breath sounds are equal. No wheezes, stridor, rales, or rhonchi. Musculoskeletal: Normal ROM, no tenderness. Strength 5/5. Sensation intact. Radial pulses equal bilaterally 2+. Neurological: A&O x 3. CN II-XII intact, There are no obvious motor or sensory deficits. Coordination appears grossly intact. Speech is normal. Skin: Skin is warm and dry and no rashes or lesions are noted. Psychiatric: Cooperative, appropriate mood & affect, normal judgment. Limitations: no limitations Course Vital Signs 09/27/16 12:13 Temperature 98.5 F Pulse Rate 87 Respiratory 17 Rate Blood Pressure 175/75 O2 Sat by Pulse 97 Oximetry Medical Decision Making - Medical Decision Making This is a 41-year-old female presents with sore throat 2 days. On physical exam patient is well appearing and afebrile in the EC. There is erythema to the posterior pharynx with tonsillar enlargement and exudates. There is tender anterior cervical chain lymphadenopathy. Patient is also congested with erythematous and edematous nasal turbinates and some mild fluid behind bilateral tympanic membranes. No cough present on exam. Lungs are clear to auscultation bilaterally and no wheezes. Influenza and strep were checked and came back negative. A chest x-ray is done and reviewed showing: Central interstitial is prominent correlate for bronchitis or interstitial pneumonitis. No pleural fluid is present. Venous congestion less likely. Correlate clinically. Report read by Dr. Gonzalez. I discussed the results with patient. Patient's symptoms correlate with bronchitis. Discussed viral pharyngitis and bronchitis. I discussed the patient will be put on a short course of steroids to help with inflammation. Patient also requested an albuterol inhaler and states that she has albuterol nebulizer treatments at home. Discussed Tylenol and Motrin for any pain. I discussed return parameters. Discussed that patient should follow up with PCP in one to 2 days or return to the EC for any worsening symptoms or for any further concerns. Patient was receptive to this plan and patient will be discharged home. I discussed this case with attending physician Dr. Koroma who agrees the plan as stated above. - Lab Data Lab Results 09/27/16 09/27/16 Range/Units 12:31 12:31 Influenza Type A RNA Not Detected (Not Detectd) Influenza Type B (PCR) Not Detected (Not Detectd) Group A Strep Rapid Negative (Negative) Disposition Clinical Impression: Bronchitis, Viral pharyngitis Disposition: HOME SELF-CARE Condition: Good Instructions: Pharyngitis (ED), Acute Bronchitis (ED) Additional Instructions: Please use prednisone and albuterol inhaler as prescribed. Please use Tylenol or Motrin for any pain. May try [id number] cough drops her Flonase to help symptom relief.Please use medication as discussed. Please follow-up with family doctor in the next 2 days. Please return to emergency room if the symptoms increase or worsen or for any other concerns. Prescriptions: Albuterol Inhaler [Ventolin Hfa Inhaler] 1 - 2 puff INHALATION Q6HR #1 inhaler predniSONE 20 mg PO DAILY 3 Days Referrals: None,Stated [Primary Care Provider] - 1-2 days Monique Watters MD [STAFF PHYSICIAN] - 1-2 days Time of Disposition: 13:22
--- NOTE | 2016-09-27 13:05 | XR ---
EXAMINATION TYPE: XR chest 2V DATE OF EXAM: 09/27/2016 12:57 PM COMPARISON: 07/23/2016 TECHNIQUE: PA and lateral views submitted. HISTORY: Pain FINDINGS: The lungs are clear and there is no pneumothorax, pleural effusion, or focal pneumonia. Central int erstitial prominence. IMPRESSION: 1. Central interstitium is prominent correlate for bronchitis or interstitial pneumonitis. No pleural fluid is present. Venous congestion less likely. Correlate clinically.
== END 2016-09-27 13:30 | disposition home or self-care (01) ==
LOC: EC 11:59
DX: J02.8 Acute pharyngitis due to other specified organisms (principal); J44.9 Chronic obstructive pulmonary disease, unspecified; J45.909 Unspecified asthma, uncomplicated; Z87.891 Personal history of nicotine dependence
CPT/HCPCS: 71020; 87081; 87430; 87502; 99283

== ENCOUNTER 2016-09-30 21:30 | Observation (INO) | payer OTHER ==
[2016-09-30] MEDS ORDERED: IPRATROPIUM-ALBUTEROL 3 ML NEB INHALATION STA (21:58)
--- NOTE | 2016-09-30 22:11 | ED ---
General Adult HPI - General Chief complaint: Shortness of Breath Stated complaint: poss bronchitis Time Seen by Provider: 09/30/16 21:46 Source: patient, RN notes reviewed Mode of arrival: ambulatory Limitations: no limitations - History of Present Illness Initial comments: This is a 41-year-old female who presents with complaints of shortness of breath and cough. Patient states she was diagnosed with bronchitis a few days ago. Patient was complaining of a sore throat at this time but states she had 3 days of steroids and now her sore throat has improved. Patient states she has history of COPD and is a smoker. Patient states she has an inhaler at home that she has been using. Patient states she is feeling a little bit better. Patient states a coworker pointed out that she had a red right eye. Patient denies any irritation, drainage, crusting or pain in the eye. Patient denies any sick contacts. Patient denies any recent fever, chills, chest pain, abdominal pain, nausea/vomiting/diarrhea, back pain, numbness, tingling, hematuria, headache, or visual changes, or any other complaints. - Related Data Home Medications Medication Instructions Recorded Confirmed Acetaminophen Tab [Tylenol Tab] 650 mg PO Q4H PRN 09/30/16 09/30/16 Albuterol Inhaler [Ventolin Hfa 1 - 2 puff INHALATION RT-Q6H PRN 09/30/16 Inhaler] Ibuprofen [Motrin] 200 - 400 mg PO Q6HR PRN 09/30/16 09/30/16 Ipratropium-Albuterol Nebulize 3 ml INHALATION RT-QID PRN 09/30/16 09/30/16 [Duoneb 0.5 mg-3 mg/3 ml Soln] Allergies Allergy/AdvReac Type Severity Reaction Status Date / Time No Known Allergies Allergy Verified 09/30/16 22:00 Review of Systems ROS Statement: Those systems with pertinent positive or pertinent negative responses have been documented in the HPI. ROS Other: All systems not noted in ROS Statement are negative. Past Medical History Past Medical History: Asthma, COPD Additional Past Medical History / Comment(s): migraines History of Any Multi-Drug Resistant Organisms: None Reported Past Surgical History: Tubal Ligation Past Psychological History: Anxiety Smoking Status: Former smoker Past Alcohol Use History: None Reported Past Drug Use History: None Reported General Exam - General Exam Comments Initial Comments: General: The patient is awake and alert, in no distress, and does not appear acutely ill. Eye: Pupils are equal, round and reactive to light, extra-ocular movements are intact. No nystagmus. There is normal conjunctiva bilaterally. No signs of icterus. Ears: TMs pink and pearly with intact cone of light bilaterally. Normal external ear canals Nose: Nasal turbinates pink and moist Mouth and throat: Mild erythema of the posterior pharynx. No tonsillar enlargement. There are moist mucous membranes and no oral lesions. Neck: The neck is supple, there is no tenderness or JVD. Cardiovascular: There is a regular rate and rhythm. No murmur, rub or gallop is appreciated. Respiratory: Lungs are clear to auscultation, respirations are non-labored, breath sounds are equal. No wheezes, stridor, rales, or rhonchi. Musculoskeletal: Normal ROM, no tenderness. Strength 5/5. Sensation intact. Radial pulses equal bilaterally 2+. Neurological: A&O x 3. CN II-XII intact, There are no obvious motor or sensory deficits. Coordination appears grossly intact. Speech is normal. Skin: Skin is warm and dry and no rashes or lesions are noted. Psychiatric: Cooperative, appropriate mood & affect, normal judgment. Limitations: no limitations Course Vital Signs 09/30/16 09/30/16 09/30/16 21:32 22:02 22:13 Temperature 98.1 F Pulse Rate 81 80 82 Respiratory 20 Rate Blood Pressure 143/105 O2 Sat by Pulse 95 Oximetry 10/01/16 00:16 Temperature 98.1 F Pulse Rate 74 Respiratory 18 Rate Blood Pressure 138/83 O2 Sat by Pulse 96 Oximetry Medical Decision Making - Medical Decision Making This is a 41-year-old female who presents with shortness of breath. Patient has a history of COPD and was recently diagnosed with bronchitis. On physical exam patient is afebrile in the EC and well-appearing. Lungs are clear to auscultation bilaterally. I do not suspect conjunctivitis of the right eye as there is no pronounced erythema, drainage or irritation of the eye. A DuoNeb was given to the patient in the EC and she reports improvement in symptoms. A chest x-ray was done and reviewed showing: Course lung markings without overt heart failure. There is probably mild cardiomegaly. No change compared to last exam. Report read by Dr. Erickson. I suggested patient admission for IV antibiotics, breathing treatments and steroids for possible developing pneumonia. I reviewed the chest x-ray as compared to patien'ts most recent x- ray on 09/27/2016 and noticed increased markings. Patient is given IV fluids, basic labs were drawn and patient is started on IV Levaquin. I discussed this case with attending physician Dr. Ray and he agrees the patient admission. Patient will be admitted as an inpatient. - Lab Data Result diagrams: 10/01/16 00:01 10/01/16 00:01 Lab Results 10/01/16 10/01/16 Range/Units 00:01 00:01 WBC 10.8 H (3.8-10.6) k/uL RBC 5.02 (3.80-5.40) m/uL Hgb 15.4 (11.4-16.0) gm/dL Hct 48.9 H (34.0-46.0) % MCV 97.4 (80.0-100.0) fL MCH 30.7 (25.0-35.0) pg MCHC 31.5 (31.0-37.0) g/dL RDW 14.6 (11.5-15.5) % Plt Count 224 (150-450) k/uL Neutrophils % 67 % Lymphocytes % 21 % Monocytes % 7 % Eosinophils % 2 % Basophils % 1 % Neutrophils # 7.2 (1.3-7.7) k/uL Lymphocytes # 2.2 (1.0-4.8) k/uL Monocytes # 0.7 (0-1.0) k/uL Eosinophils # 0.2 (0-0.7) k/uL Basophils # 0.1 (0-0.2) k/uL Hypochromasia Moderate Sodium 142 (137-145) mmol/L Potassium 4.4 (3.5-5.1) mmol/L Chloride 107 (98-107) mmol/L Carbon Dioxide 23 (22-30) mmol/L Anion Gap 12 mmol/L BUN 9 (7-17) mg/dL Creatinine 0.50 L (0.52-1.04) mg/dL Est GFR (MDRD) Af Amer >60 (>60 ml/min/1.73 sqM) Est GFR (MDRD) Non-Af >60 (>60 ml/min/1.73 sqM) Glucose 105 H (74-99) mg/dL Calcium 9.1 (8.4-10.2) mg/dL Total Bilirubin 0.6 (0.2-1.3) mg/dL AST 38 H (14-36) U/L ALT 36 (9-52) U/L Alkaline Phosphatase 104 (38-126) U/L Total Protein 7.0 (6.3-8.2) g/dL Albumin 3.8 (3.5-5.0) g/dL Disposition Clinical Impression: Pneumonia, COPD (chronic obstructive pulmonary disease) Disposition: ADMITTED IP TO THIS HOSP Referrals: None,Stated [Primary Care Provider] - 1-2 days Decision Time: 01:03
--- NOTE | 2016-09-30 22:41 | XR ---
EXAMINATION TYPE: XR chest 2V DATE OF EXAM: 09/30/2016 10:27 PM COMPARISON: 09/27/2016 HISTORY: Short of breath TECHNIQUE: Frontal and lateral views of the chest are obtained. FINDINGS: Heart is probably enlarged. There is coarsening of interstitial markings. There is no defi nite heart failure. There is no sign of pleural effusion. There are no hilar masses. Bony thorax appe ars intact. IMPRESSION: Coarse lung markings without overt heart failure. There is probably mild cardiomegaly. N o change compared to last exam.
[2016-09-30] MEDS ORDERED: SODIUM CHLORIDE 0.9% 500 ML IV ONE (23:24)
[2016-09-30] MEDS ORDERED: LEVOFLOXACIN 750MG-D5W PMX 750 MG in DEXTROSE/WATER 1 150ML.BAG IVPB STA (23:24)
[2016-10-01 00:20] LABS: Basophils # (A) 0.1 k/uL (0-0.2); Basophils % (A) 1 %; CH 29.3; CHCM 30.3; Eosinophils # (A) 0.2 k/uL (0-0.7); Eosinophils % (A) 2 %; HCT 48.9 % (34.0-46.0); HGB 15.4 gm/dL (11.4-16.0); Hypochromasia Moderate; Luc # (Auto) 0.31; Luc % (Auto) 3; Lymphocytes # (A) 2.2 k/uL (1.0-4.8); Lymphocytes % (A) 21 %; MCH 30.7 pg (25.0-35.0); MCHC 31.5 g/dL (31.0-37.0); MCV 97.4 fL (80.0-100.0); Mean Platelet Volume 7.3; Monocytes # (A) 0.7 k/uL (0-1.0); Monocytes % (A) 7 %; Neutrophils # (A) 7.2 k/uL (1.3-7.7); Neutrophils % (A) 67 %; RBC 5.02 m/uL (3.80-5.40); RDW 14.6 % (11.5-15.5); WBC 10.8 k/uL (3.8-10.6)
[2016-10-01] MEDS ORDERED: HYDROcodone/APAP 5-325MG 1 EACH TAB PO PRN (00:21)
[2016-10-01] MEDS ORDERED: NALOXONE 0.4 MG/ML 1 ML VIAL IV PRN (00:21)
[2016-10-01] MEDS ORDERED: IBUPROFEN 400 MG TAB PO PRN (00:21)
[2016-10-01] MEDS ORDERED: ACETAMINOPHEN TAB 325 MG TAB PO PRN (00:21)
[2016-10-01] MEDS ORDERED: HYDROmorphone 1 MG/ML 1 ML SYRINGE IV PRN (00:21)
[2016-10-01] MEDS ORDERED: methylPREDNISolone SOD SUCCI 125 MG/2 ML VIAL IV STA (00:21)
[2016-10-01] MEDS ORDERED: SODIUM CHLORIDE 0.9% 1,000 ML IV SCH (00:30)
[2016-10-01 00:42] LABS: Anion Gap 12 mmol/L; Calcium 9.1 mg/dL (8.4-10.2); Carbon Dioxide 23 mmol/L (22-30); Chloride 107 mmol/L (98-107); Glucose 105 mg/dL (74-99); Non-African American GFR(MDRD) >60 (>60 ml/min/1.73 sqM); Sodium 142 mmol/L (137-145); Total Bilirubin 0.6 mg/dL (0.2-1.3)
[2016-10-01 00:49] LABS: ALT 36 U/L (9-52); AST 38 U/L (14-36); Alkaline Phosphatase 104 U/L (38-126); Blood Urea Nitrogen 9 mg/dL (7-17); Potassium 4.4 mmol/L (3.5-5.1)
[2016-10-01] MEDS: IPRATROPIUM-ALBUTEROL 3 ML NEB INHALATION PRN ×2 (02:55→07:44)
[2016-10-01 05:46] LABS: Glucose,Whole Blood 156 mg/dL (75-99)
[2016-10-01] MEDS ORDERED: methylPREDNISolone SOD SUCCI 125 MG/2 ML VIAL IV SCH (08:00)
[2016-10-01 08:25] VITALS: BP 109/55; PULSE 85; RESP 20; TEMP 97.1
[2016-10-01 12:32] LABS: Glucose,Whole Blood 141 mg/dL (75-99)
--- NOTE | 2016-10-01 20:56 | HP ---
This dictation is both H&P and discharge summary. DATE OF ADMISSION: 10/01/2016 The patient is a 41-year-old female who came in with complaints of shortness of breath and cough. The patient apparently has postnasal discharge and was subsequently discharged home. The patient comes back with pink eye in the right eye, because of which the patient's work friends were concerned and the patient was asked to go to the ER. Patient was subsequently admitted here for possibility of asthma exacerbation. When I examined the patient, the patient does not have any wheezing. Patient does have history of either asthma or COPD. He never followed with any professional services manager as an outpatient in the past. The patient, at this point of time, is not in any acute exacerbation. Patient is clinically doing well. I will go ahead and discharge the patient today. The patient's chest x-ray was read as congestive heart failure, although patient denied any orthopnea or PND. Patient's chest x-ray findings are secondary to soft tissue interference. I will obtain a BNP level. Patient's previous echocardiogram is essentially within normal limits. Patient is morbidly obese with possibility of obstructive sleep apnea. Patient will need a sleep study as an outpatient. Patient will need a primary care physician and a professional services manager. Patient is trying to quit smoking. She is requesting help to quit smoking. She cut down the cigarettes to 5 cigarettes per day. The patient takes ibuprofen on and off for pain. I do have a concern of acid reflux because of ibuprofen, because of which I asked her to take ranitidine with ibuprofen. REVIEW OF SYSTEMS: CONSTITUTIONAL: No fever, no malaise, no fatigue. HEENT: No recent visual problems or hearing problems. Denied any sore throat. CARDIOVASCULAR: No chest pain, orthopnea, PND, no palpitations, no syncope. PULMONARY: As described in HPI. GASTROINTESTINAL: No diarrhea, no nausea, no vomiting, no abdominal pain. Normoactive bowel sounds. NEUROLOGICAL: No headaches, no weakness, no numbness. HEMATOLOGICAL: Denies any bleeding or petechiae. GENITOURINARY: Denies any burning micturition, frequency, or urgency. MUSCULOSKELETAL/RHEUMATOLOGICAL: Denies any joint pain, swelling, or any muscle pain. ENDOCRINE: Denies any polyuria or polydipsia. The rest of the 14 point review of systems is negative. Home medications: 1. Albuterol inhaler. 2. Acetaminophen. 3. Ipratropium. ALLERGIES: No known drug allergies. PAST MEDICAL HISTORY: Obesity, obstructive sleep apnea, asthma or COPD until we get pulmonary function test I cannot really say whether it is asthma or COPD. Anxiety disorder. SOCIAL HISTORY: The patient continues to smoke about 5 cigarettes per day. Denied any alcohol abuse or any drug abuse. FAMILY HISTORY: Significant for COPD, cancer, CVA, TIA, diabetes mellitus and hypertension in multiple family members. Patient does have anxiety disorder as well. PHYSICAL EXAMINATION: Temperature 97.1, pulse 84, respiratory rate of 20, blood pressure is 109/55, saturating at 93% on room air. GENERAL: Alert and oriented x3, not in apparent respiratory distress, morbidly obese. HEENT: Right eye conjunctivitis. Pupils are round and equally reacting to light. EOMI. No scleral icterus. No conjunctival pallor. Normocephalic, atraumatic. No pharyngeal erythema. No thyromegaly. CARDIOVASCULAR: S1 and S2 present. No murmurs, rubs, or gallops. PULMONARY: Chest is clear to auscultation, no wheezing or crackles. ABDOMEN: Soft, nontender, nondistended, normoactive bowel sounds. No palpable organomegaly. MUSCULOSKELETAL: No joint swelling or deformity. EXTREMITIES: No cyanosis, clubbing, or pedal edema. NEUROLOGICAL: Gross neurological examination did not reveal any focal deficits. SKIN: No rashes. LABORATORY DATA: CBC and CMP, no significant abnormality was appreciated. Chest x-ray findings as mentioned above. I am obtaining a rapid strep test and BNP, results of which are still not available. ASSESSMENT AND PLAN: 1. Shortness of breath, probably related to either asthma or chronic obstructive pulmonary disease exacerbation. My suspicion of bronchitis is low, but because of the patient's concerns, I will go ahead and start her on empiric doxycycline. We will start her on short course of weaning steroids, Symbicort, albuterol and ipratropium. We will set her up for follow up with a primary care physician and a professional services manager. 2. Morbid obesity. Possibility of obstructive sleep apnea. Patient will need an outpatient stress test. Dietary counseling provided. 3. Multiples seasonal allergies for which we will use loratadine. 4. Right eye possible viral conjunctivitis. Will discharge her on Cipro eyedrops, mostly likely viral conjunctivitis, to prevent secondary bacteria will go ahead and give eyedrops which is Cipro. 5. Regarding smoking cessation, will go ahead and give her Wellbutrin as per patient's request. The patient will follow up with Dr. Sebastian Busch in one week and with Dr. Sandoval on November 05, at 10:45 a.m.. Activity as tolerated. Cardiac low calorie diet.
== END 2016-10-01 16:37 | disposition home or self-care (01) ==
LOC: EC 21:30 → 3SUR 10-01 01:38
PROVIDERS: ADMIT Internal Medicine; ATTEND Internal Medicine
DX: R06.02 Shortness of breath (principal); J44.9 Chronic obstructive pulmonary disease, unspecified; J45.909 Unspecified asthma, uncomplicated; H57.9 Unspecified disorder of eye and adnexa; G43.909 Migraine, unspecified, not intractable, without status migrainosus; E66.01 Morbid (severe) obesity due to excess calories; F17.210 Nicotine dependence, cigarettes, uncomplicated; Z68.43 Body mass index [BMI] 50.0-59.9, adult; Z82.5 Family history of asthma and other chronic lower respiratory diseases; Z82.49 Family history of ischemic heart disease and other diseases of the circulatory system; Z83.3 Family history of diabetes mellitus; Z82.3 Family history of stroke
CPT/HCPCS: 99285; 96365 ×2; 96375 ×2; 36415; 94640 ×3; 80053; 85025; 87040; 71020; G0378; J2930; J1956; 96376

== ENCOUNTER 2021-04-13 17:20 | Emergency (ER) | payer OTHER, BC ==
[2021-04-13 17:29] VITALS: TEMP 97.9
[2021-04-13] MEDS ORDERED: HYDROmorphone 0.5 MG/0.5 ML SYRINGE IVP STA ×2 (17:31→18:22)
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
[2021-04-13 17:48] LABS: Basophils % (A) 1 %; Eosinophils # (A) 0.2 k/uL (0-0.7); Eosinophils % (A) 4 %; HCT 43.6 % (34.0-46.0); HGB 14.3 gm/dL (11.4-16.0); Lymphocytes # (A) 1.7 k/uL (1.0-4.8); Lymphocytes % (A) 28 %; MCH 31.1 pg (25.0-35.0); MCHC 32.8 g/dL (31.0-37.0); MCV 94.6 fL (80.0-100.0); Mean Platelet Volume 7.3; Monocytes # (A) 0.3 k/uL (0-1.0); Monocytes % (A) 5 %; Neutrophils # (A) 3.8 k/uL (1.3-7.7); Neutrophils % (A) 61 %; Platelet Count 253 k/uL (150-450); RBC 4.61 m/uL (3.80-5.40); RDW 12.8 % (11.5-15.5); WBC 6.3 k/uL (3.8-10.6)
[2021-04-13 18:02] LABS: ALT 31 U/L (4-34); AST 34 U/L (14-36); African American GFR (CKD) >90 (>60 ml/min/1.73 sqM); Albumin 4.2 g/dL (3.5-5.0); Alcohol <10 mg/dL; Alkaline Phosphatase 121 U/L (38-126); Anion Gap 10 mmol/L; Blood Urea Nitrogen 11 mg/dL (7-17); Calcium 9.5 mg/dL (8.4-10.2); Carbon Dioxide 22 mmol/L (22-30); Chloride 107 mmol/L (98-107); Glucose 127 mg/dL (74-99); Non-African American GFR(CKD) >90 (>60 ml/min/1.73 sqM); Potassium 4.1 mmol/L (3.5-5.1); Sodium 139 mmol/L (137-145); Total Bilirubin 0.5 mg/dL (0.2-1.3); Total Protein 7.4 g/dL (6.3-8.2)
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
[2021-04-13 18:19] LABS: INR 0.9 (<1.2)
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
[2021-04-13 18:41] VITALS: BP 101/71; PULSE 66; RESP 16
== END 2021-04-13 18:40 | disposition home or self-care (01) ==
LOC: EC 17:20
DX: S20.219A Contusion of unspecified front wall of thorax, initial encounter (principal); M54.6 Pain in thoracic spine; J44.9 Chronic obstructive pulmonary disease, unspecified; V49.50XA Passenger injured in collision with unspecified motor vehicles in traffic accident, initial encounter; Y92.410 Unspecified street and highway as the place of occurrence of the external cause
CPT/HCPCS: 36415; 93005; 80053; 84484; 85025; 85610; 85730; 80320; 72170; 71045; 71260; 74177; 99284; 96374; 96376; J1170; Q9967; 96375

== ENCOUNTER 2021-07-12 15:07 | Emergency (ER) | payer BC, OTHER ==
[2021-07-12 15:29] VITALS: TEMP 99.3
[2021-07-12] MEDS ORDERED: BAMLANIVIMAB (EUA) 700 MG, ETESEVIMAB (EUA) 1,400 MG in SODIUM CHLORIDE 0.9% 100 ML IVPB ONE (18:00)
[2021-07-12] MEDS: SODIUM CHLORIDE 0.9% 50 ML IVPB ONE ×2 (18:10→19:20)
[2021-07-12 18:25] VITALS: BP 114/80; PULSE 76; RESP 18
--- NOTE | 2021-07-12 18:30 | ED ---
Recheck HPI - General Chief Complaint: Recheck/Abnormal Lab/Rx Stated Complaint: Diarrhea Time Seen by Provider: 07/12/21 17:09 Source: patient Mode of arrival: ambulatory Limitations: no limitations - History of Present Illness Initial Comments: 46-year-old female patient presents to the emergency department today for evaluation of nasal congestion, nausea, diarrhea. States symptoms started on Wednesday. She denies any cough, shortness of breath, chest pain. Denies any fever or chills. States family members have similar symptoms in the house so she was concerned. She does have a history of asthma and uses an inhaler. Denies any use of medications for her symptoms. Denies chance of . - Related Data Home Medications Medication Instructions Recorded Confirmed Acetaminophen Tab [Tylenol] 650 mg PO Q4H PRN 09/30/16 09/30/16 Ibuprofen [Motrin] 200 - 400 mg PO Q6HR PRN 09/30/16 09/30/16 Previous Rx's Medication Instructions Recorded Albuterol Inhaler (Mhu) [Ventolin 1 - 2 puff INHALATION RT-Q6H PRN 10/01/16 Hfa Inhaler (Mhu)] #1 inhaler Budesonide-Formot 160-4.5 Mcg 2 puff INHALATION BID #1 inhaler 10/01/16 [Symbicort 160-4.5 Mcg Inhaler] Ciprofloxacin Ophth Soln [Cipro 1 drops BOTH EYES Q4HR #1 bottle 10/01/16 Ophth Soln] Loratadine [Claritin] 10 mg PO DAILY #14 tab 10/01/16 Ranitidine HCl 150 mg PO BID #30 tab 10/01/16 Tiotropium [place] [Spiriva] 1 cap INHALATION DAILY #1 device 10/01/16 buPROPion [Wellbutrin] 75 mg PO BID #30 tablet 10/01/16 predniSONE 10 mg PO DAILY #30 tab 10/01/16 Doxycycline Monohydrate [Monodox] 100 mg PO Q12HR #10 cap 10/02/16 Allergies Allergy/AdvReac Type Severity Reaction Status Date / Time No Known Allergies Allergy Verified 07/12/21 15:29 Review of Systems ROS Statement: Those systems with pertinent positive or pertinent negative responses have been documented in the HPI. ROS Other: All systems not noted in ROS Statement are negative. Past Medical History Past Medical History: Asthma, COPD Additional Past Medical History / Comment(s): migraines History of Any Multi-Drug Resistant Organisms: None Reported Past Surgical History: Tubal Ligation Past Anesthesia/Blood Transfusion Reactions: No Reported Reaction Past Psychological History: Anxiety Smoking Status: Never smoker Past Alcohol Use History: None Reported Past Drug Use History: None Reported - Past Family History Father Family Medical History: Cancer, COPD, CVA/TIA, Diabetes Mellitus, Hypertension Mother Family Medical History: Diabetes Mellitus, Hypertension General Exam Limitations: no limitations General appearance: alert, in no apparent distress, other (This is a well- developed, well-nourished adult female in no acute distress.) ENT exam: Present: normal exam, normal oropharynx, mucous membranes moist Respiratory exam: Present: normal lung sounds bilaterally. Absent: respiratory distress, wheezes, rales, rhonchi, stridor Cardiovascular Exam: Present: regular rate, normal rhythm, normal heart sounds. Absent: systolic murmur, diastolic murmur, rubs, gallop, clicks GI/Abdominal exam: Present: soft, normal bowel sounds. Absent: distended, tenderness, guarding, rebound, rigid Neurological exam: Present: alert, oriented X3, CN II-XII intact Psychiatric exam: Present: normal affect, normal mood Skin exam: Present: warm, dry, intact, normal color. Absent: rash Course Vital Signs 07/12/21 07/12/21 07/12/21 15:26 17:42 18:00 Temperature 99.3 F Pulse Rate 74 76 Respiratory 18 15 18 Rate Blood Pressure 113/82 114/80 O2 Sat by Pulse 99 96 Oximetry Medical Decision Making - Medical Decision Making 46-year-old female patient presents to the emergency department today for evaluation of upper respiratory congestion, diarrhea, nausea. She did test positive for COVID-19. She did meet criteria to receive monoclonal antibody infusion. She tolerated the infusion without difficulty. She is discharged fol low up with the primary care physician for recheck in 1-2 days. Return parameters were discussed in detail. She verbalizes understanding and agrees with this plan. My attending is Dr. Solano. - Lab Data Lab Results 07/12/21 Range/Units 15:35 Coronavirus (PCR) Detected A (Not Detectd) Disposition Clinical Impression: COVID-19 Disposition: HOME SELF-CARE Condition: Good Instructions (If sedation given, give patient instructions): Coronavirus Disease 2019 (COVID-19) Is patient prescribed a controlled substance at d/c from ED?: No Referrals: Olivia Castillo MD [Primary Care Provider] - 1-2 days
== END 2021-07-12 20:50 | disposition home or self-care (01) ==
LOC: EC 15:07
DX: U07.1 COVID-19 (principal); J44.9 Chronic obstructive pulmonary disease, unspecified
CPT/HCPCS: 87635; 99284; 96360; J3490